=== PATIENT | female | born 1980 | race Caucasian/White ===

== ENCOUNTER 2020-02-04 17:05 | Emergency (ER) | payer BC ==
[~2020-02-04] VITALS: Ht 162.6 cm; Wt 57.0 kg
[2020-02-04] MEDS ORDERED: HYDROcodone/APAP 5/325MG 1 TAB TABLET PO ONE (17:30)
[2020-02-04] MEDS ORDERED: LIDOCAINE 1% Multi-Dose 20 ML VIAL. INJ ONE (17:30)
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
--- NOTE | 2020-02-04 17:56 | RAD ---
EXAM: Right foot, 3 views; right ankle, 3 views; right femur, 2 views. HISTORY: Pain. COMPARISON: None. FINDINGS: Right foot and ankle: 3 views of the right foot and ankle are obtained. There is no fracture, dislocation or subluxation. The alignment and joint spaces are unremarkable. The ankle mortise is intact. There is no osteochondral lesion. There are few small bone islands. There is a tiny ossicle or osseous ridge projecting along the inferior medial aspect of the medial malleolus. Left femur: 2 views of the left femur are obtained. There is no fracture, dislocation or subluxation. There is a soft tissue laceration with associated gas within the soft tissue defect and 2 mm foreign body within the soft tissue defect along the posterior medial mid left thigh. IMPRESSION: 1. Soft tissue laceration containing gas and a punctate foreign body within the posterior medial left mid thigh. 2. No convincing acute osseous finding. Electronically signed by: Vanessa Lawrence MD (02/04/2020 5:53 PM) [facility]
[2020-02-04] MEDS ORDERED: HYDR-3164 PO (18:25)
[2020-02-04] MEDS ORDERED: AMOX1TAB61 PO (18:25)
[2020-02-04] MEDS ORDERED: DIPH,PERTUSS(ACELL),TET VAC/PF 0.5 ML SYRINGE. VAX IM ONE ×2 (18:27→18:30)
[2020-02-04] MEDS ORDERED: BACITRACIN TOPICAL OINT PACKET. TP ONE (18:30)
[2020-02-04 19:05] VITALS: BP 149/88
== END 2020-02-04 19:15 | disposition home or self-care (01) ==
LOC: ER 17:05
DX: S71.111A Laceration without foreign body, right thigh, initial encounter (principal); M79.671 Pain in right foot; M25.571 Pain in right ankle and joints of right foot; Z88.2 Allergy status to sulfonamides; Z88.8 Allergy status to other drugs, medicaments and biological substances; V98.8XXA Other specified transport accidents, initial encounter; Y93.89 Activity, other specified; Y92.413 State road as the place of occurrence of the external cause; Y99.8 Other external cause status
CPT/HCPCS: 12004; 73552; 73610; 73630; 90471; 90715; 99284; J3490